=== PATIENT | male | born 1940 | race Caucasian/White ===

== ENCOUNTER 2018-08-17 09:07 | Outpatient (CLI) | payer MEDICARE, BC ==
--- NOTE | 2018-08-17 10:40 | ULT ---
RIGHT UPPER QUADRANT ULTRASOUND DATED 08/17/18. FINDINGS: Multiple longitudinal and transverse images of the right upper quadrant of the abdomen were obtained using a multihertz curvilinear transducer. Real-time, color flow, and spectral waveform Doppler anal ysis was used to evaluate the right upper quadrant of the abdomen. Images demonstrate the hepatic parenchyma to be unremarkable. No evidence of intrahepatic biliary di latation is seen. Hepatopetal flow is seen in the main portal vein. The common bile duct is of norm al size measuring 5 mm. The visualized portions of the pancreas are unremarkable. The gallbladder is unremarkable with no ev idence of gallstones. No evidence of pericholecystic fluid is seen. The right kidney is unremarkable measuring 11.9 cm from pole to pole. IMPRESSION: Normal right upper quadrant ultrasound. POS: [facility]
== END 2018-08-17 09:08 | disposition home or self-care (01) ==
LOC: SCSULT 09:07
PROVIDERS: ATTEND Internal Medicine Gastroenterology
DX: R10.13 Epigastric pain (principal)
CPT/HCPCS: 76705

== ENCOUNTER 2019-04-26 10:11 | Day surgery (SDC) | payer MEDICARE, BC ==
[2019-04-25 17:16] VITALS: BMI 28.4
[2019-04-26] MEDS ORDERED: Gadobenate Dimeglumine 529 MG/1 ML (20ML VIAL) ONE (10:51)
[2019-04-26] MEDS ORDERED: Fentanyl 100 MCG/2 ML VIAL ONE (11:41)
[2019-04-26] MEDS ORDERED: Midazolam HCl 2 mg/2 ml Vial ONE (11:41)
[2019-04-26] MEDS ORDERED: ePHEDrine 50 MG/ML VIAL ONE (13:02)
[2019-04-26] MEDS ORDERED: Lidocaine 2% PF 5 ML VIAL ONE (13:02)
[2019-04-26] MEDS ORDERED: Ondansetron PF 4 MG/2 ML Vial ONE (13:02)
[2019-04-26] MEDS ORDERED: PROPOFOL 200 MG/20 ML VIAL ONE (13:02)
[2019-04-26] MEDS ORDERED: Dexamethasone 20 MG/5 ML VIAL ONE (13:02)
[2019-04-26] MEDS ORDERED: Glycopyrrolate 0.2 MG/ML 5 ML SYRINGE ONE (13:02)
--- NOTE | 2019-04-26 13:44 | RAD ---
LUMBAR SPINE: 04/26/19 Five views. HISTORY: Preop. Back pain. Lateral views were taken with neutral, flexion and extension positions. Lumbar vertebrae maintain height. There are degenerative changes present with spurring from the lumba r vertebrae. Minimal wedging at L1. Loss of disc space at all levels. Facet hypertrophy is prominent in the lower lumbar spine. Mild anterolisthesis at L3-4 measured at 3 to 4 mm in neutral position. Th is appears to exacerbate slightly with flexion. IMPRESSION: Moderate degenerative changes of the lumbar spine as described. POS: [facility]
--- NOTE | 2019-04-26 14:17 | MRI ---
MRI thoracic spine with and without contrast: DATE: 04/26/2019 HISTORY: 78-year-old male with syrinx. COMPARISON: No prior thoracic spine MRIs FINDINGS: There is minimal dilation of the central canal of the spinal cord on the order of 1 and 2 mm, (mild h ydromyelia) from the midthoracic spine, approximately T6-7, to approximately T12-L1. There is no abnormal intramedullary, extramedullary-intradural, extradural, intraosseous, or perivertebral, enhan cement or mass. Vertebral body heights are maintained. No major bone marrow signal abnormality. There are small disc-osteophyte complexes protruding into the anterior aspect of spinal canal, includ ing right and left paracentral-lateral at T4-5, and right paracentral at T10-11, which are the largest ones. No mikey cord compression. Mild to moderate central spinal canal stenosis at T10-11 and to a lesser degree at T4-5 and T5-6, where there is ligamentum flavum thickening. No severe central spinal canal stenosis. IMPRESSION: 1. 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 2. No evidence of neoplasm 3. Thoracic spondylosis, mostly mild.
--- NOTE | 2019-04-26 15:23 | MRI ---
MRI OF THE LUMBAR SPINE WITH AND WITHOUT CONTRAST: 04/26/19 Multiplanar and multisequential imaging lumbar spine obtained. Postcontrast images obtained. INDICATIONS: Low back pain. Spinal stenosis. COMPARISON: Comparison made to prior MRI lumbar spine dated 08/04/17. FINDINGS: Lumbar vertebrae maintain normal height and alignment. There are degenerative changes seen with spur ring from the lumbar vertebrae. Degenerative disc changes at all levels with mild loss of disc space at all levels of the lumbar spine. At L1-2, there is a broad based disc bulge flattening the thecal sac. Facet and ligamentous hypertrop hy. Mild central canal stenosis. Bilateral foraminal stenosis secondary to diffuse disc bulge and fac et hypertrophy. Findings are stable from the prior study. At L2-3, there is a diffuse disc bulge with small central protrusion flattening the thecal sac. Facet and ligamentous hypertrophy and posterior epidural fat. These changes result in moderate central can al stenosis. Bilateral foraminal stenosis. Not significantly changed from prior exam. At L3-4, slight anterolisthesis. Diffuse disc bulge with asymmetric bulge/protrusion centrally and to the right with probable annular fissure. There is posterior facet and ligamentous hypertrophy with posterior epidural fat. These changes all compress the thecal sac resulting in moderate to severe edin tral canal stenosis, unchanged from prior exam. Bilateral foraminal stenosis more severe on the right . At L4-5, diffuse disc bulge. Facet and ligamentous hypertrophy is prominent. Posterior epidural fat. Mild to moderate central canal stenosis, stable from prior exam. Severe right foraminal stenosis. At L5-S1, annular fissure with diffuse disc bulge and small central protrusion indenting the anterior thecal sac. Mild central canal stenosis. Bilateral foraminal stenosis secondary to broad based disc bulge and facet hypertrophy. Syrinx in the lower thoracic cord is again noted. This was described on prior exam and is unchanged i n appearance. IMPRESSION: Disc bulge and protrusions at multiple levels with central canal and foraminal stenosis at multiple l evels, most severe at the L3-4 level. See description at each level above. The findings appear stable from the prior exam of 08/04/17. POS: [facility]
== END 2019-04-26 15:00 | disposition home or self-care (01) ==
LOC: MRI 10:11 → EDSTATUS 12:00 → MRI 15:00
PROVIDERS: ATTEND Surgery
DX: M51.16 Intervertebral disc disorders with radiculopathy, lumbar region (principal); M48.061 Spinal stenosis, lumbar region without neurogenic claudication; M47.814 Spondylosis without myelopathy or radiculopathy, thoracic region; Q06.4 Hydromyelia; N40.0 Benign prostatic hyperplasia without lower urinary tract symptoms; F40.240 Claustrophobia; Z79.899 Other long term (current) drug therapy
CPT/HCPCS: 72120; 72157; 72158; 82565; A9577; J1100; J2001; J2250; J2405; J2704; J3010; J3490

== ENCOUNTER 2019-06-26 22:59 | Emergency (ER) | payer MEDICARE, BC ==
--- NOTE | 2019-06-26 23:34 | CT ---
CT OF THE HEAD WITHOUT CONTRAST: 06/26/19 COMPARISON: None. HISTORY: Head trauma, pain. TECHNIQUE: Axial CT imaging at 4.8 mm intervals from vertex through skull base without contrast. FINDINGS: There is mild prominence of the bilateral lateral ventricles. The imaged paranasal sinuses and mastoi d air cells are well aerated. No displaced calvarial fracture is seen. There is no intracranial hemor rhage, midline shift, or mass effect. IMPRESSION: No intracranial hemorrhage or displaced calvarial fracture. POS: [facility]
== END 2019-06-26 23:43 | disposition home or self-care (01) ==
LOC: SCSER 22:59
DX: S00.03XA Contusion of scalp, initial encounter (principal); I10 Essential (primary) hypertension; E78.5 Hyperlipidemia, unspecified; E78.1 Pure hyperglyceridemia; Z79.899 Other long term (current) drug therapy; W21.03XA Struck by baseball, initial encounter; Y93.64 Activity, baseball
CPT/HCPCS: 70450